=== PATIENT | male | born 1945 | race Caucasian/White ===

== ENCOUNTER 2021-11-24 08:28 | Day surgery (SDC) | payer MEDICARE, OTHER ==
[~2021-11-24] VITALS: Ht 177.8 cm; Wt 113.1 kg
[2021-11-24] MEDS ORDERED: ASPIRIN E.C. 8181 MG PO (10:53)
[2021-11-24 10:55] VITALS: BP 154/90; PULSE 58; TEMP 97
[2021-11-24] MEDS ORDERED: GLUCOPHAGE500 MG/TAB PO (10:56)
[2021-11-24] MEDS ORDERED: OTEZLA PO (10:58)
[2021-11-24] MEDS ORDERED: LASIX 40MG TABL40 MG PO (10:58)
[2021-11-24] MEDS ORDERED: HCTZ12.5TAB PO (10:59)
[2021-11-24] MEDS ORDERED: LIPITOR20 MG PO (10:59)
[2021-11-24] MEDS ORDERED: PRINIVIL40 MG PO (11:00)
--- NOTE | 2021-11-24 11:06 | NUR ---
1055 - PT arrives from procedure and was settled by SWETA Steven 1100 - Written report obtained. PT A&Ox3; denies pain/nausea, and was provided snack/drink per PT request. Call costa is within reach if needed. Will monitor per intervals. Visitor present.
[2021-11-24 11:10] VITALS: BP 161/90; PULSE 59
[2021-11-24] MEDS ORDERED: TOPROL XL 25MG25 MG PO (11:19)
--- NOTE | 2021-11-24 11:19 | NUR ---
1110 - Vitals obtained. PT has finished snack and drink; denies pain/nausea and expressed desire to be discharged. Awaiting DR to speak w/ PT. Call costa remains within reach if needed.
[2021-11-24 11:25] VITALS: BP 153/91; PULSE 55
--- NOTE | 2021-11-24 11:40 | NUR ---
1125 - Vitals obtained. has spoken w/ PT. DC instructions and educational material reviewed w/ PT who verbalized understanding and signed the related paperwork. Questions answered to PT satisfaction. IV discontinued. Catheter tip intact and pressure bandage applied; no redness or swelling noted. PT refused RN assistance changing into personal belonings; call costa remains within reach if needed and visitor remains present.
--- NOTE | 2021-11-24 11:46 | NUR ---
1145 - PT dismissed from endo via wheelchair to PT entrence by Doris SOL. PT has DC packet and personal belongings, and was transferrd into the care of his , who is driving private car.
[2021-11-24 12:38] VITALS: BP 154/81; PULSE 54; TEMP 97.4
== END 2021-11-24 11:47 | disposition home or self-care (01) ==
LOC: SDCO 08:28
DX: Z12.11 Encounter for screening for malignant neoplasm of colon (principal); D12.2 Benign neoplasm of ascending colon; K62.89 Other specified diseases of anus and rectum; K64.0 First degree hemorrhoids; G47.33 Obstructive sleep apnea (adult) (pediatric); E11.9 Type 2 diabetes mellitus without complications; Z79.84 Long term (current) use of oral hypoglycemic drugs; Z79.85 Long-term (current) use of injectable non-insulin antidiabetic drugs; Z87.891 Personal history of nicotine dependence
CPT/HCPCS: J2704; J7120